=== PATIENT | female | born 1950 | race Caucasian/White ===

== ENCOUNTER 2021-07-24 10:30 | Inpatient (IN) | payer OTHER, MEDICARE ==
[2021-07-24] MEDS ORDERED: Ondansetron PF 4 MG/2 ML Vial ONE (11:40)
[2021-07-24] MEDS ORDERED: Morphine 4 MG/ML VIAL ONE ×2 (11:40→13:32)
[2021-07-24 12:48] LABS: #Eosinphils 0.1 thou/uL (0.0-0.7); #Lymphocytes 2.4 thou/uL (1.20-3.40); #Monocytes 0.9 thou/uL (0.11-0.59); #Neutrophils 14.3 thou/uL (1.40-6.50); %Basophils 0.2 % (0.0-1.0); %Eosinophils 0.8 % (0.0-10.0); %Lymphocytes 13.6 % (21.0-51.0); %Monocytes 5.1 % (0.0-10.0); %Neutrophils 80.3 % (42.0-75.0); Hemoglobin 12.1 g/dL (12.0-16.0); Mean Corpuscular HGB CONC 32.4 g/dL (32.0-36.0); Mean Corpuscular Volume 89.7 fL (78.0-98.0); Platelet Count 344 thou/uL (130-400); RBC Distribution Width 12.5 % (11.5-14.5); Red Blood Cell (RBC) Count 4.15 mill/uL (4.20-5.40); White Blood Cell (WBC) Count 17.9 thou/uL (4.8-10.8)
[2021-07-24 13:12] LABS: ALT (SGPT) 24 U/L (8-55); AST (SGOT) 17 U/L (5-34); Albumin 3.5 g/dL (3.4-4.8); Alkaline Phosphatase 69 U/L (40-110); Anion Gap 12 mmol/L (10-20); BUN (Urea Nitrogen) 30 mg/dL (9.8-20.1); Bilirubin, Total 0.5 mg/dL (0.2-1.2); Calc. Creatinine Clearance 0 mL/min (70-130); Calcium 7.9 mg/dL (7.8-10.44); Carbon Dioxide 23 mmol/L (23-31); Chloride 107 mmol/L (98-107); Globulin 2.8 g/dL (2.4-3.5); Glucose 238 mg/dL (80-115); Potassium 4.2 mmol/L (3.5-5.1); Protein, Total 6.3 g/dL (5.8-8.1); Sodium 138 mmol/L (136-145)
[2021-07-24] MEDS ORDERED: Promethazine HCl 25 MG/ML VIAL IM PRN (13:36)
[2021-07-24] MEDS ORDERED: Morphine 2 MG/ML VIAL SLOW IVP PRN (13:36)
[2021-07-24] MEDS ORDERED: Dextrose 50% Abboject 50 ML SYRINGE SLOW IVP PRN (13:36)
[2021-07-24] MEDS ORDERED: Ondansetron PF 4 MG/2 ML Vial IVP PRN (13:36)
[2021-07-24] MEDS ORDERED: Dextrose 5% in Water 1,000 ML IV PRN (13:36)
[2021-07-24] MEDS ORDERED: traMADol HCl 50 MG TAB PO PRN (13:40)
[2021-07-24] MEDS ORDERED: Cyclobenzaprine 10 MG TAB PO PRN (13:40)
[2021-07-24] MEDS ORDERED: Acetaminophen 325 MG TAB PO SCH (13:45)
[2021-07-24] MEDS ORDERED: CEFAZOLIN 2 GM in Premix Bag 1 BAG IVPB SCH (14:00)
[2021-07-24] MEDS ORDERED: Vancomycin 1 GM in Premix Bag 1 BAG IVPB SCH (14:00)
[2021-07-24 16:01] LABS: SARS-CoV-2 NAA Rapid Test Not Detected (NotDetected)
[2021-07-24 16:39] VITALS: BMI 29.0
[2021-07-24] MEDS: Sodium Chloride 0.9% 1,000 ML IV SCH (17:56)
[2021-07-24] MEDS: traMADol HCl 50 MG TAB PO SCH ×2 (17:57→23:05)
[2021-07-24] MEDS: Acetaminophen 325 MG TAB PO SCH ×2 (17:57→23:05)
[2021-07-24] MEDS: Senokot S 8.6-50 MG TAB PO SCH (20:40)
[2021-07-24] MEDS ORDERED: Famotidine/PF 20 mg/2ml Vial SLOW IVP SCH (21:00)
[2021-07-24] MEDS ORDERED: Famotidine 20 MG TAB PO SCH (21:00)
[2021-07-25] MEDS: Sodium Chloride 0.9% 1,000 ML IV SCH (03:41)
[2021-07-25] MEDS: Acetaminophen 325 MG TAB PO SCH ×4 (05:14→23:12)
[2021-07-25] MEDS: traMADol HCl 50 MG TAB PO SCH (05:15)
[2021-07-25 05:33] LABS: #Basophils 0.1 thou/uL (0.0-0.2); #Eosinphils 0.1 thou/uL (0.0-0.7); #Lymphocytes 2.8 thou/uL (1.20-3.40); #Monocytes 1.3 thou/uL (0.11-0.59); #Neutrophils 9.2 thou/uL (1.40-6.50); %Basophils 0.6 % (0.0-1.0); %Eosinophils 1.1 % (0.0-10.0); %Lymphocytes 20.5 % (21.0-51.0); %Monocytes 9.7 % (0.0-10.0); %Neutrophils 68.1 % (42.0-75.0); Hemoglobin 10.5 g/dL (12.0-16.0); Mean Corpuscular HGB CONC 32.4 g/dL (32.0-36.0); Mean Corpuscular Hemoglobin 28.9 pg (27.0-31.0); Mean Corpuscular Volume 89.4 fL (78.0-98.0); Mean Platelet Volume 8.1 fL (7.4-10.4); Platelet Count 333 thou/uL (130-400); RBC Distribution Width 12.5 % (11.5-14.5); Red Blood Cell (RBC) Count 3.63 mill/uL (4.20-5.40); White Blood Cell (WBC) Count 13.5 thou/uL (4.8-10.8)
[2021-07-25 05:50] LABS: Phosphorus 3.6 mg/dL (2.3-4.7)
[2021-07-25 05:53] LABS: Anion Gap 14 mmol/L (10-20); BUN (Urea Nitrogen) 26 mg/dL (9.8-20.1); Calc. Creatinine Clearance 37 mL/min (70-130); Calcium 7.3 mg/dL (7.8-10.44); Carbon Dioxide 22 mmol/L (23-31); Chloride 108 mmol/L (98-107); Glucose 186 mg/dL (80-115); Magnesium 1.5 mg/dL (1.6-2.6); Potassium 4.1 mmol/L (3.5-5.1); Sodium 140 mmol/L (136-145)
[2021-07-25] MEDS ORDERED: Vancomycin 1 GM/200 ML BAG ONE (06:38)
[2021-07-25] MEDS ORDERED: Fentanyl 100 MCG/2 ML VIAL ONE ×2 (06:38→06:55)
[2021-07-25] MEDS ORDERED: Lidocaine 2% Jelly 5 ML TUBE ONE (06:39)
[2021-07-25] MEDS ORDERED: Lidocaine 1% (PF) 30 ML VIAL ONE (06:55)
[2021-07-25] MEDS ORDERED: Midazolam HCl 2 mg/2 ml Vial ONE (06:55)
[2021-07-25] MEDS ORDERED: Glycopyrrolate 0.2 MG/ML 5 ML SYRINGE ONE (07:42)
[2021-07-25] MEDS ORDERED: Ondansetron PF 4 MG/2 ML Vial ONE (07:42)
[2021-07-25] MEDS ORDERED: Rocuronium Bromide 10 MG/ML (10ML VIAL) ONE (07:42)
[2021-07-25] MEDS ORDERED: PROPOFOL 200 MG/20 ML VIAL ONE (07:42)
[2021-07-25] MEDS ORDERED: Dexamethasone 20 MG/5 ML VIAL ONE (07:42)
[2021-07-25] MEDS ORDERED: PHENYLEPHRINE-NS 100 MCG/ML 10 ML SYRINGE ONE (07:42)
[2021-07-25] MEDS ORDERED: Bupivacaine HCl 0.5%/Epinephrine 1:200,000/PF 30 ml Vial ONE (07:42)
[2021-07-25] MEDS ORDERED: Phenylephrine 10 MG/ML VIAL ONE (07:55)
[2021-07-25] MEDS ORDERED: Ondansetron HCl/PF 4 MG/2 ML Vial IVP PRN (08:20)
[2021-07-25] MEDS ORDERED: Promethazine HCl 25 MG/ML VIAL IVPB PRN (08:20)
[2021-07-25] MEDS ORDERED: Promethazine HCl 25 MG/ML VIAL IM PRN ×2 (08:20→08:30)
[2021-07-25] MEDS ORDERED: Fentanyl 100 MCG/2 ML VIAL SLOW IVP PRN (08:24)
[2021-07-25] MEDS ORDERED: Ropivacaine 0.2% 550 ML 550 ML NERVE BLCK SCH (08:30)
[2021-07-25] MEDS ORDERED: HYDROcodone/Acetaminophen 5/325 mg Tablet PO PRN ×2 (08:30)
[2021-07-25] MEDS ORDERED: Zolpidem Tartrate 5 MG TAB PO PRN (08:30)
[2021-07-25] MEDS ORDERED: traMADol HCl 50 MG TAB PO PRN ×2 (08:30)
[2021-07-25] MEDS ORDERED: Magnesium Sulfate 3 GM in Sodium Chloride 0.9% 100 ML IV SCH (11:30)
[2021-07-25] MEDS: Ondansetron PF 4 MG/2 ML Vial IVP PRN (13:00)
[2021-07-25] MEDS: CEFAZOLIN 2 GM in Premix Bag 1 BAG IVPB SCH ×2 (15:00→23:13)
[2021-07-25] MEDS: Polyethylene Glycol 3350 17 GM Packet PO SCH (17:17)
[2021-07-25] MEDS: Senokot S 8.6-50 MG TAB PO SCH ×2 (17:18→20:38)
[2021-07-25] MEDS ORDERED: Famotidine 20 MG TAB PO SCH (21:00)
[2021-07-25] MEDS ORDERED: Famotidine/PF 20 mg/2ml Vial SLOW IVP SCH (21:00)
[2021-07-25] MEDS: HumaLOG 300 UNITS/3 ML VIAL SC PRN ×2 (21:43)
[2021-07-26] MEDS ORDERED: metFORMIN 500 MG TAB PO SCH (08:00)
[2021-07-26] MEDS ORDERED: HYDROCHLOROTHIAZIDE PO SCH (09:00)
[2021-07-26] MEDS ORDERED: BISOPROLOL PO SCH (09:00)
[2021-07-26] MEDS ORDERED: [UNRECOGNIZED DRUG - OTHER] PO SCH (09:00)
[2021-07-26] MEDS ORDERED: Lantus 1000 UNITS/10 ML VIAL SC SCH (09:00)
[2021-07-26] MEDS ORDERED: Bisoprolol Fumarate 5 MG TAB PO SCH (09:00)
[2021-07-26 10:04] VITALS: BP 144/74; TEMP 97.4
[2021-07-26] MEDS: Polyethylene Glycol 3350 17 GM Packet PO SCH (10:24)
[2021-07-26] MEDS: Senokot S 8.6-50 MG TAB PO SCH (10:24)
[2021-07-26] MEDS: Ondansetron PF 4 MG/2 ML Vial IVP PRN (10:42)
[2021-07-26] MEDS: Acetaminophen 325 MG TAB PO SCH (12:00)
[2021-07-26] MEDS ORDERED: Tamsulosin HCl 0.4 MG CAP PO SCH (21:00)
== END 2021-07-26 14:43 | disposition home or self-care (01) | DRG 483 ==
LOC: ERS 10:30 → SURG A 13:40
PROVIDERS: ADMIT Surgery; ATTEND Surgery
PROC: 0RRK0JZ Replacement of Left Shoulder Joint with Synthetic Substitute, Open Approach (ICD-10-PCS; principal; 2021-07-25)
PROC: 0RPK0JZ Removal of Synthetic Substitute from Left Shoulder Joint, Open Approach (ICD-10-PCS; 2021-07-25)
DX: S42.292A Other displaced fracture of upper end of left humerus, initial encounter for closed fracture (principal); E78.00 Pure hypercholesterolemia, unspecified; W19.XXXA Unspecified fall, initial encounter; E78.5 Hyperlipidemia, unspecified; N18.9 Chronic kidney disease, unspecified; E11.22 Type 2 diabetes mellitus with diabetic chronic kidney disease; I12.9 Hypertensive chronic kidney disease with stage 1 through stage 4 chronic kidney disease, or unspecified chronic kidney disease; Y92.89 Other specified places as the place of occurrence of the external cause; Z88.1 Allergy status to other antibiotic agents; Z88.8 Allergy status to other drugs, medicaments and biological substances
CPT/HCPCS: 36415; 36416; 71045; 80048; 80053; 83735; 84100; 85025; 93005; 96374; 96375; 96376; A4306; C1713; G0390; J0690; J1100; J1815; J2001; J2250; J2270; J2370; J2405; J2704; J2795; J3010; J3370; J3475; J3490; J7050; S0028; U0002